=== PATIENT | female | born 1960 ===

== ENCOUNTER 2021-04-18 17:08 | Inpatient (IN) | payer MEDICARE, MEDICAID ==
[~2021-04-18] VITALS: Ht 160 cm; Wt 96.4 kg
--- NOTE | 2021-04-18 17:14 | NUR ---
PT brought in as IFT from [facility] with chief complaint of abnormal labs (k 7.3) no other symptoms reported. The patient arrives A&O.
[2021-04-18] MEDS ORDERED: SODIUM CHLORIDE FLUSH 10ML SYR IVF ONE (17:30)
[2021-04-18 17:48] LABS: BASOPHILS % (AUTO) 0 % (0-1); EOSINOPHILS % (AUTO) 0 % (1-7); LYMPHOCYTES % (AUTO) 14 % (22-44); MEAN CORPUSCULAR HEMOGLOBIN 30.9 pg (27.0-34.8); MEAN CORPUSCULAR HGB CONC 32.8 g/dL (32.4-35.8); MEAN PLATELET VOLUME 8.6 fL (7.4-10.4); MONOCYTES % (AUTO) 8 % (2-9); NEUTROPHILS % (AUTO) 78 % (42-75); PLATELET COUNT 141 x10^3/uL (130-400); RED BLOOD COUNT 2.89 x10^6/uL (3.82-5.3); RED CELL DISTRIBUTION WIDTH 13.7 % (9.6-15.2)
--- NOTE | 2021-04-18 17:53 | NUR ---
PT resting in bed, call light in reach.
[2021-04-18 18:00] LABS: ALANINE AMINOTRANSFERASE 17 U/L (12-78); ALBUMIN 2.8 g/dL (3.4-5.0); CALCIUM 8.5 mg/dL (8.5-10.1); CREATININE 1.82 mg/dL (0.55-1.02)
[2021-04-18 18:02] LABS: ALKALINE PHOSPHATASE 54 U/L (45-117); BILIRUBIN,TOTAL 0.1 mg/dL (0.2-1.0); TOTAL PROTEIN 5.8 g/dL (6.4-8.2)
[2021-04-18 18:19] LABS: ANION GAP 5 mmol/L (5-15); CHLORIDE 116 mmol/L (98-107)
--- NOTE | 2021-04-18 18:29 | NUR ---
BERNARDA (PTS SISTER) [phone]
--- NOTE | 2021-04-18 18:47 | NUR ---
Report to Harleen GAINES
[2021-04-18] MEDS ORDERED: SODIUM ZIRCONIUM CYCLOSILICATE 10 GM PO ONE (19:00)
--- NOTE | 2021-04-18 19:03 | NUR ---
STRAIGHT CAHT UA COLLECTED PER ORDER. PT. TOLERATED WELL. URINE WALKED TO LAB. PURWICK NOW IN USE. PT. CLEANED OF INCONTINENT STOOL. PT. REPORTS THIS HAS BEEN AN ISSUE SINCE RECEIVING [employer]AYEXAL[employer]ITER.
[2021-04-18 19:09] LABS: MICROSCOPIC NOT IND
[2021-04-18] MEDS: SODIUM BICARB 8.4%,50ML SYR. 75 MEQ in SODIUM CHLORIDE 0.45% 1,000 ML IV SCH ×2 (20:11→20:55)
[2021-04-18] MEDS ORDERED: ONDANSETRON 2MG/ML, 2ML IVPush PRN (20:30)
[2021-04-18] MEDS ORDERED: LABETALOL 5MG/ML, 20ML IVPush PRN (20:30)
--- NOTE | 2021-04-18 20:33 | NUR ---
UPON FLUSHING IV TO HANG BICARB IV SITE WAS VERY PAINFUL TO PT. SLIGHT SWELLING NOTED. IV DC WITH TIP INTACT. WORKING ON NEW IV ACCESS.
[2021-04-18] MEDS: SODIUM BICARBONATE 8.4% 75 MEQ in DEXTROSE 5% 1,000 ML IV SCH (20:46)
--- NOTE | 2021-04-18 20:52 | NUR ---
STILL WORKING ON NEW IV ACCESS.
--- NOTE | 2021-04-18 21:04 | NUR ---
REPORT TO LIANA LOPEZ. FLOOR READY FOR PT. TRANSPORT.
--- NOTE | 2021-04-18 22:09 | NUR ---
PT. BEING TRANSPORTED TO FLOOR AT THIS TIME.
[2021-04-18 22:45] VITALS: BP 93/61
[2021-04-18] MEDS: HEPARIN 5,000 UNITS/ML, 1ML SQ SCH (22:51)
[2021-04-19 01:13] VITALS: BP 90/56
[2021-04-19] MEDS: SODIUM BICARBONATE 8.4% 75 MEQ in DEXTROSE 5% 1,000 ML IV SCH (05:21)
[2021-04-19 07:03] VITALS: BP 93/63
[2021-04-19] MEDS: HEPARIN 5,000 UNITS/ML, 1ML SQ SCH ×3 (08:07→22:21)
[2021-04-19 09:38] LABS: BASOPHILS % (AUTO) 1 % (0-1); EOSINOPHILS % (AUTO) 3 % (1-7); LYMPHOCYTES % (AUTO) 25 % (22-44); MEAN CORPUSCULAR HEMOGLOBIN 30.6 pg (27.0-34.8); MEAN CORPUSCULAR HGB CONC 32.4 g/dL (32.4-35.8); MEAN PLATELET VOLUME 8.9 fL (7.4-10.4); MONOCYTES % (AUTO) 7 % (2-9); NEUTROPHILS % (AUTO) 64 % (42-75); PLATELET COUNT 116 x10^3/uL (130-400); RED CELL DISTRIBUTION WIDTH 13.9 % (9.6-15.2)
[2021-04-19 09:44] LABS: ANION GAP 2 mmol/L (5-15); CALCIUM 8.4 mg/dL (8.5-10.1); CHLORIDE 114 mmol/L (98-107); CREATININE 1.35 mg/dL (0.55-1.02)
[2021-04-19] MEDS: SODIUM CHLORIDE 0.45% 1,000 ML IV SCH ×2 (12:05→22:21)
[2021-04-19 13:22] VITALS: BP 90/57
[2021-04-19] MEDS ORDERED: SODIUM POLYSTYRENE SULFONATE ORAL SUSP PO ONE (16:00)
[2021-04-19 18:55] VITALS: BP 96/62
[2021-04-20 00:15] LABS: CREATININE,URINE RANDOM 75.2 mg/dL
[2021-04-20 01:36] VITALS: BP 99/65
[2021-04-20] MEDS: HEPARIN 5,000 UNITS/ML, 1ML SQ SCH ×3 (07:10→22:13)
[2021-04-20 08:06] VITALS: BP 111/73
[2021-04-20] MEDS: SODIUM CHLORIDE 0.45% 1,000 ML IV SCH (08:29)
[2021-04-20 08:44] LABS: ALBUMIN 2.5 g/dL (3.4-5.0); ANION GAP 6 mmol/L (5-15); CHLORIDE 114 mmol/L (98-107); CREATININE 1.43 mg/dL (0.55-1.02)
[2021-04-20 10:51] LABS: BASOPHILS % (AUTO) 1 % (0-1); EOSINOPHILS % (AUTO) 4 % (1-7); LYMPHOCYTES % (AUTO) 23 % (22-44); MEAN CORPUSCULAR HEMOGLOBIN 30.8 pg (27.0-34.8); MEAN CORPUSCULAR HGB CONC 32.5 g/dL (32.4-35.8); MEAN PLATELET VOLUME 9.1 fL (7.4-10.4); MONOCYTES % (AUTO) 8 % (2-9); NEUTROPHILS % (AUTO) 64 % (42-75); PLATELET COUNT 122 x10^3/uL (130-400); RED BLOOD COUNT 3.03 x10^6/uL (3.82-5.3); RED CELL DISTRIBUTION WIDTH 13.6 % (9.6-15.2)
[2021-04-20 14:48] VITALS: BP 99/65
[2021-04-20 19:12] VITALS: BP 100/65
[2021-04-21 00:12] VITALS: BP 106/65
[2021-04-21] MEDS: HEPARIN 5,000 UNITS/ML, 1ML SQ SCH ×2 (06:41→15:23)
[2021-04-21 06:47] VITALS: BP 111/72
[2021-04-21 08:33] LABS: BASOPHILS % (AUTO) 1 % (0-1); EOSINOPHILS % (AUTO) 4 % (1-7); LYMPHOCYTES % (AUTO) 33 % (22-44); MEAN CORPUSCULAR HEMOGLOBIN 30.9 pg (27.0-34.8); MEAN PLATELET VOLUME 9.1 fL (7.4-10.4); MONOCYTES % (AUTO) 9 % (2-9); NEUTROPHILS % (AUTO) 54 % (42-75); PLATELET COUNT 129 x10^3/uL (130-400); RED BLOOD COUNT 3.18 x10^6/uL (3.82-5.3); RED CELL DISTRIBUTION WIDTH 13.4 % (9.6-15.2)
[2021-04-21 08:37] LABS: ALBUMIN 2.7 g/dL (3.4-5.0); ANION GAP 4 mmol/L (5-15); CALCIUM 8.6 mg/dL (8.5-10.1); CHLORIDE 114 mmol/L (98-107)
[2021-04-21 12:52] VITALS: BP 109/71
[2021-04-21 20:00] VITALS: BP 108/56
[2021-04-21] MEDS: ACETAMINOPHEN 325 MG TABLET PO PRN (20:38)
[2021-04-22] MEDS: HEPARIN 5,000 UNITS/ML, 1ML SQ SCH ×4 (00:30→22:32)
[2021-04-22 02:18] VITALS: BP 104/60
[2021-04-22 03:42] LABS: BASOPHILS % (AUTO) 0 % (0-1); EOSINOPHILS % (AUTO) 4 % (1-7); LYMPHOCYTES % (AUTO) 35 % (22-44); MEAN CORPUSCULAR HEMOGLOBIN 31.1 pg (27.0-34.8); MEAN CORPUSCULAR HGB CONC 33.1 g/dL (32.4-35.8); MEAN PLATELET VOLUME 9.1 fL (7.4-10.4); MONOCYTES % (AUTO) 10 % (2-9); NEUTROPHILS % (AUTO) 51 % (42-75); PLATELET COUNT 130 x10^3/uL (130-400); RED BLOOD COUNT 2.96 x10^6/uL (3.82-5.3); RED CELL DISTRIBUTION WIDTH 13.7 % (9.6-15.2)
[2021-04-22 03:56] LABS: ALBUMIN 2.5 g/dL (3.4-5.0); ANION GAP 4 mmol/L (5-15); CALCIUM 7.9 mg/dL (8.5-10.1); CHLORIDE 114 mmol/L (98-107); CREATININE 1.05 mg/dL (0.55-1.02)
[2021-04-22 07:44] VITALS: BP 99/65
[2021-04-22 14:59] VITALS: BP 114/64
[2021-04-22 19:24] VITALS: BP 105/58
[2021-04-22] MEDS: ATORVASTATIN 20 MG TABLET PO SCH (19:30)
[2021-04-22] MEDS: ACETAMINOPHEN 325 MG TABLET PO PRN (22:32)
[2021-04-23 00:58] VITALS: BP 105/66
[2021-04-23] MEDS: ASPIRIN 81 MG TABLET EC PO SCH (06:15)
[2021-04-23 06:35] LABS: BASOPHILS % (AUTO) 1 % (0-1); CHLORIDE 113 mmol/L (98-107); EOSINOPHILS % (AUTO) 3 % (1-7); LYMPHOCYTES % (AUTO) 23 % (22-44); MEAN CORPUSCULAR HEMOGLOBIN 30.9 pg (27.0-34.8); MEAN CORPUSCULAR HGB CONC 32.8 g/dL (32.4-35.8); MEAN PLATELET VOLUME 9.3 fL (7.4-10.4); MONOCYTES % (AUTO) 11 % (2-9); NEUTROPHILS % (AUTO) 63 % (42-75); PLATELET COUNT 136 x10^3/uL (130-400); RED BLOOD COUNT 2.95 x10^6/uL (3.82-5.3); RED CELL DISTRIBUTION WIDTH 13.7 % (9.6-15.2)
[2021-04-23 06:40] LABS: ALBUMIN 2.4 g/dL (3.4-5.0); ANION GAP 5 mmol/L (5-15); CALCIUM 8.4 mg/dL (8.5-10.1); CREATININE 1.03 mg/dL (0.55-1.02)
[2021-04-23 06:56] VITALS: BP 119/68
[2021-04-23] MEDS: HEPARIN 5,000 UNITS/ML, 1ML SQ SCH ×2 (07:26→15:34)
[2021-04-23] MEDS: ACETAMINOPHEN 325 MG TABLET PO PRN (07:30)
[2021-04-23 12:45] VITALS: BP 114/73
[2021-04-23] MEDS ORDERED: POLYETHYLENE GLYCOL 17 GM PACKET PO ONE (17:00)
[2021-04-23 19:02] VITALS: BP 102/68
[2021-04-23] MEDS: ATORVASTATIN 20 MG TABLET PO SCH (19:40)
[2021-04-24] MEDS: HEPARIN 5,000 UNITS/ML, 1ML SQ SCH ×3 (00:37→17:43)
[2021-04-24 01:49] VITALS: BP 109/74
[2021-04-24] MEDS: ASPIRIN 81 MG TABLET EC PO SCH (06:06)
[2021-04-24 06:54] VITALS: BP 122/74
[2021-04-24 07:26] LABS: BASOPHILS % (AUTO) 0 % (0-1); EOSINOPHILS % (AUTO) 2 % (1-7); LYMPHOCYTES % (AUTO) 12 % (22-44); MEAN CORPUSCULAR HGB CONC 33.5 g/dL (32.4-35.8); MEAN PLATELET VOLUME 8.7 fL (7.4-10.4); MONOCYTES % (AUTO) 11 % (2-9); NEUTROPHILS % (AUTO) 74 % (42-75); PLATELET COUNT 139 x10^3/uL (130-400); RED BLOOD COUNT 2.82 x10^6/uL (3.82-5.3); RED CELL DISTRIBUTION WIDTH 13.6 % (9.6-15.2)
[2021-04-24 07:36] LABS: ALBUMIN 2.7 g/dL (3.4-5.0); ANION GAP 6 mmol/L (5-15); CALCIUM 8.4 mg/dL (8.5-10.1); CHLORIDE 109 mmol/L (98-107); CREATININE 1.03 mg/dL (0.55-1.02)
[2021-04-24 13:07] VITALS: BP 98/63
[2021-04-24] MEDS: CEFTRIAXONE 2 GM in DEXTROSE 5% 50 ML IVPB SCH (14:46)
[2021-04-24 18:06] LABS: MICROSCOPIC INDICATED
[2021-04-24 19:08] VITALS: BP 104/67
[2021-04-24] MEDS: ATORVASTATIN 20 MG TABLET PO SCH (21:21)
[2021-04-24] MEDS: ACETAMINOPHEN 325 MG TABLET PO PRN (21:21)
[2021-04-25 01:01] VITALS: BP 98/62
[2021-04-25] MEDS: HEPARIN 5,000 UNITS/ML, 1ML SQ SCH ×3 (01:51→18:20)
[2021-04-25] MEDS: ASPIRIN 81 MG TABLET EC PO SCH (06:10)
[2021-04-25] MEDS: ACETAMINOPHEN 325 MG TABLET PO PRN (06:19)
[2021-04-25 06:20] LABS: BASOPHILS % (AUTO) 0 % (0-1); EOSINOPHILS % (AUTO) 2 % (1-7); LYMPHOCYTES % (AUTO) 21 % (22-44); MEAN CORPUSCULAR HEMOGLOBIN 30.8 pg (27.0-34.8); MEAN CORPUSCULAR HGB CONC 32.6 g/dL (32.4-35.8); MEAN PLATELET VOLUME 9.4 fL (7.4-10.4); MONOCYTES % (AUTO) 14 % (2-9); NEUTROPHILS % (AUTO) 62 % (42-75); PLATELET COUNT 135 x10^3/uL (130-400); RED BLOOD COUNT 2.74 x10^6/uL (3.82-5.3); RED CELL DISTRIBUTION WIDTH 13.9 % (9.6-15.2)
[2021-04-25 06:22] LABS: HCT (SEDRATE) 25.6 % (34.6-47.8)
[2021-04-25 06:35] LABS: CHLORIDE 110 mmol/L (98-107)
[2021-04-25 06:50] LABS: ANION GAP 3 mmol/L (5-15); CALCIUM 8.3 mg/dL (8.5-10.1); CREATININE 1.04 mg/dL (0.55-1.02)
[2021-04-25 10:49] VITALS: BP 90/61
[2021-04-25 13:13] VITALS: BP 101/62
[2021-04-25] MEDS: CEFTRIAXONE 2 GM in DEXTROSE 5% 50 ML IVPB SCH (14:32)
[2021-04-25] MEDS: ATORVASTATIN 20 MG TABLET PO SCH (21:34)
[2021-04-25 21:40] VITALS: BP 95/59
[2021-04-26] MEDS: HEPARIN 5,000 UNITS/ML, 1ML SQ SCH ×3 (01:39→18:15)
[2021-04-26 02:38] VITALS: BP 114/75
[2021-04-26] MEDS ORDERED: BACLOFEN 10 MG TABLET PO ONE (04:00)
[2021-04-26 05:50] LABS: BASOPHILS % (AUTO) 1 % (0-1); EOSINOPHILS % (AUTO) 2 % (1-7); LYMPHOCYTES % (AUTO) 18 % (22-44); MEAN CORPUSCULAR HEMOGLOBIN 30.3 pg (27.0-34.8); MEAN CORPUSCULAR HGB CONC 32.4 g/dL (32.4-35.8); MEAN PLATELET VOLUME 9.6 fL (7.4-10.4); MONOCYTES % (AUTO) 12 % (2-9); NEUTROPHILS % (AUTO) 68 % (42-75); PLATELET COUNT 139 x10^3/uL (130-400); RED BLOOD COUNT 2.69 x10^6/uL (3.82-5.3); RED CELL DISTRIBUTION WIDTH 13.8 % (9.6-15.2)
[2021-04-26] MEDS: ASPIRIN 81 MG TABLET EC PO SCH (05:55)
[2021-04-26 06:01] LABS: ANION GAP 6 mmol/L (5-15); CALCIUM 8.3 mg/dL (8.5-10.1); CHLORIDE 108 mmol/L (98-107); CREATININE 1.05 mg/dL (0.55-1.02)
[2021-04-26 07:37] VITALS: BP 100/67
[2021-04-26 12:34] VITALS: BP 104/61
[2021-04-26] MEDS: CEFTRIAXONE 2 GM in DEXTROSE 5% 50 ML IVPB SCH (14:45)
[2021-04-26 19:02] VITALS: BP 95/63
[2021-04-26] MEDS ORDERED: QUET100T2 PO (20:12)
[2021-04-26] MEDS ORDERED: BUSP30TA PO (20:25)
[2021-04-26] MEDS ORDERED: MEMA10TA PO (20:25)
[2021-04-26] MEDS ORDERED: NITROGLYCERIN SL (20:25)
[2021-04-26] MEDS ORDERED: CHOL10003 PO (20:25)
[2021-04-26] MEDS ORDERED: ASPI-1026 PO (20:25)
[2021-04-26] MEDS ORDERED: LISI40TA9 PO (20:25)
[2021-04-26] MEDS ORDERED: FURO20TA3 PO (20:25)
[2021-04-26] MEDS ORDERED: FLUO40CA2 PO (20:25)
[2021-04-26] MEDS ORDERED: MONT10TA6 PO (20:25)
[2021-04-26] MEDS: ATORVASTATIN 20 MG TABLET PO SCH (21:53)
[2021-04-27 01:41] VITALS: BP_SYST 102; BP_SYST 97; BP_DIAS 58; BP_DIAS 68
[2021-04-27] MEDS: HEPARIN 5,000 UNITS/ML, 1ML SQ SCH ×3 (02:29→17:34)
[2021-04-27 03:48] LABS: BASOPHILS % (AUTO) 0 % (0-1); EOSINOPHILS % (AUTO) 3 % (1-7); LYMPHOCYTES % (AUTO) 27 % (22-44); MEAN CORPUSCULAR HEMOGLOBIN 30.5 pg (27.0-34.8); MEAN CORPUSCULAR HGB CONC 32.7 g/dL (32.4-35.8); MEAN PLATELET VOLUME 9.1 fL (7.4-10.4); MONOCYTES % (AUTO) 14 % (2-9); NEUTROPHILS % (AUTO) 56 % (42-75); PLATELET COUNT 147 x10^3/uL (130-400); RED BLOOD COUNT 2.63 x10^6/uL (3.82-5.3); RED CELL DISTRIBUTION WIDTH 13.5 % (9.6-15.2)
[2021-04-27 03:59] LABS: CALCIUM 8.5 mg/dL (8.5-10.1); CHLORIDE 110 mmol/L (98-107)
[2021-04-27 04:03] LABS: ANION GAP 4 mmol/L (5-15); CREATININE 1.23 mg/dL (0.55-1.02)
[2021-04-27] MEDS: ASPIRIN 81 MG TABLET EC PO SCH (05:24)
[2021-04-27 09:59] VITALS: BP 101/68
[2021-04-27] MEDS ORDERED: ATOR20TA37 PO (11:16)
[2021-04-27] MEDS ORDERED: ASPI81TA45 PO (11:16)
[2021-04-27] MEDS: CEFTRIAXONE 2 GM in DEXTROSE 5% 50 ML IVPB SCH (14:25)
[2021-04-27 15:02] VITALS: BP 93/58
[2021-04-27] MEDS ORDERED: AMOX1TAB64 PO (17:52)
== END 2021-04-27 19:42 | disposition home or self-care (01) | DRG 314 ==
LOC: ED 20:22 → 4WST 20:35
PROVIDERS: ADMIT Family Medicine; ATTEND Internal Medicine
PROC: 0T9B70Z Drainage of Bladder with Drainage Device, Via Natural or Artificial Opening (ICD-10-PCS; principal; 2021-04-18)
DX: I95.89 Other hypotension (principal); N17.0 Acute kidney failure with tubular necrosis; E87.2 Acidosis; I13.0 Hypertensive heart and chronic kidney disease with heart failure and stage 1 through stage 4 chronic kidney disease, or unspecified chronic kidney disease; E87.5 Hyperkalemia; E86.1 Hypovolemia; D64.9 Anemia, unspecified; D69.6 Thrombocytopenia, unspecified; E11.22 Type 2 diabetes mellitus with diabetic chronic kidney disease; E78.5 Hyperlipidemia, unspecified; E86.0 Dehydration; F03.90 Unspecified dementia, unspecified severity, without behavioral disturbance, psychotic disturbance, mood disturbance, and anxiety; I25.10 Atherosclerotic heart disease of native coronary artery without angina pectoris; I50.9 Heart failure, unspecified; E83.51 Hypocalcemia; N18.30 Chronic kidney disease, stage 3 unspecified; T50.2X5A Adverse effect of carbonic-anhydrase inhibitors, benzothiadiazides and other diuretics, initial encounter; I25.2 Old myocardial infarction; I69.320 Aphasia following cerebral infarction; Z82.49 Family history of ischemic heart disease and other diseases of the circulatory system; Z87.891 Personal history of nicotine dependence; Z95.1 Presence of aortocoronary bypass graft; Z79.899 Other long term (current) drug therapy; Z88.1 Allergy status to other antibiotic agents; Y92.89 Other specified places as the place of occurrence of the external cause
CPT/HCPCS: 36415; 71046; 76770; 80048; 80053; 80069; 81001; 81003; 82306; 82570; 82607; 82728; 82962; 83540; 83550; 83605; 83735; 83970; 84100; 84300; 84443; 84540; 85025; 85651; 86140; 87040; 87086; 93005; 93306; 99285; G0378; J0696; J1644; J7070